=== PATIENT | male | born 1990 | race Two or more races ===

== ENCOUNTER 2020-08-23 12:45 | Emergency (ER) | payer OTHER ==
[~2020-08-23] VITALS: Ht 180.3 cm; Wt 77.1 kg
[~2020-08-23 12:45] MED LIST: KETO10TA2 PO
== END 2020-08-23 17:40 | disposition home or self-care (01) ==
LOC: ER 12:45
DX: M94.0 Chondrocostal junction syndrome [Tietze] (principal)

== ENCOUNTER 2020-09-21 10:26 | Outpatient (CLI) | payer OTHER | END 2020-09-21 10:37 | disposition home or self-care (01) | LOC: RAD 10:26 | PROVIDERS: ATTEND Internal Medicine | DX: R07.89 Other chest pain (principal); R94.5 Abnormal results of liver function studies; E78.2 Mixed hyperlipidemia; E55.9 Vitamin D deficiency, unspecified; E56.0 Deficiency of vitamin E; R73.01 Impaired fasting glucose; E04.1 Nontoxic single thyroid nodule ==